=== PATIENT | female | born 1985 | race Caucasian/White ===

== ENCOUNTER → 2016-08-28 | Outpatient (CLI) | payer OTHER ==
[~2016-08-28] MED LIST: SULF1TAB23 PO
[2016-08-28 14:49] LABS: AUTOMATED NEUTROPHIL # 2.4 TH/MM3 (1.8-7.7); BASOPHIL # 0.1 TH/MM3 (0-0.2); EOSINOPHIL # 0.1 TH/MM3 (0-0.4); EOSINOPHIL % 2.1 % (0.0-4.0); HEMATOCRIT 40.2 % (35.0-46.0); HEMO FLAGS DIFF FINAL; LYMPH % 41.6 % (9.0-44.0); LYMPHOCYTE # 2.2 TH/MM3 (1.0-4.8); MEAN CELL VOLUME 91.3 FL (80.0-100.0); MEAN CORPUSCULAR HEMOGLOBIN 30.4 PG (27.0-34.0); MEAN CORPUSCULAR HGB CONC 33.3 % (32.0-36.0); MONO % 7.7 % (0.0-8.0); NEUT % 47.6 % (16.0-70.0); PLATELET COUNT 233 TH/MM3 (150-450); RED CELL DISTRIBUTION WIDTH 11.8 % (11.6-17.2); WHITE BLOOD COUNT 5.2 TH/MM3 (4.0-11.0)
== END ==
LOC: PHPRE 12:11
PROVIDERS: ATTEND Orthopaedic Surgery
DX: Z01.812 Encounter for preprocedural laboratory examination (principal)
CPT/HCPCS: 85025

== ENCOUNTER → 2016-09-05 | Day surgery (SDC) | payer OTHER ==
[~2016-09-05] VITALS: Ht 160 cm; Wt 87.0 kg
[~2016-09-05] MED LIST changes: +*Lactated Ringer's INJ 1,000 ML ONE; +*MEPERIDINE 25 MG INJ VIAL PERIprocedural Use ONLY ONE; +ACETAMINOPHEN/HYDROcodone 325 MG/5 MG TAB ONE; +BUPIVACAINE/EPINEPHRINE 0.5% PF 30 ML VIAL ONE; +FAMOTIDINE 20 MG/2 ML VIAL ONE; +KETOROLAC TROMETHAMINE 30 MG/ML (IVP) VIAL ONE; +LACTATED RINGER'S 1000 ML INJ 1,000 ML ONE; +MIDAZOLAM HCL 2 MG/2 ML VIAL ONE; +MORPHINE SULFATE 4 MG/ML INJ ONE; +PROPOFOL 200 MG/20 ML AMP IV ONE; +TRIAMCINOLONE ACETONIDE 40 MG/ML VIAL ONE
[2016-09-05 06:47] VITALS: BP 106/69; PULSE 65; RESP 14; TEMP 98.1; O2SAT 97
[2016-09-05 09:05] VITALS: PULSE 70
[2016-09-05 10:00] VITALS: PULSE 62; TEMP 97.8
[2016-09-05 11:25] VITALS: BP 105/68; PULSE 89; RESP 14; O2SAT 98
--- NOTE | 2016-09-05 14:29 | MP ---
cc: SENTHIL CROSS M.D. DATE OF SURGERY: 09/05/2016. 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 OPERATIVE PROCEDURE PERFORMED: Arthroscopic lateral release with chondroplasty of the patella and partial synovectomy. SURGEON: Senthil Cross MD. DESCRIPTION OF THE PROCEDURE IN DETAIL: The patient was placed on the operating table in the supine position. Adequate general anesthesia was administered by the anesthesiologist. The patient's right knee was prepped and draped in the usual sterile fashion. A time-out was called and the patient's name, procedure, location, et cetera, were fully confirmed. The Esmarch bandage was used to exsanguinate the lower extremity and a pneumatic tourniquet was inflated at the level of the mid thigh to 300. An anterolateral portal was used for introduction of the double cannula system and the joint was distended with lactated Ringer's solution. A systematic and complete examination of the knee joint revealed medial and lateral compartments unremarkable as well as intact anterior and posterior cruciate ligaments. The patella did appear to be gliding laterally and there appeared to be a medial facet type osteochondral lesion not all the way down to bone. The surrounding area was with hypertrophic synovial tissue. The spinal needle was placed through the anteromedial surface and located and this was followed by insertion of the scope which was switched from the lateral side. The spinal needle was placed in the suprapatellar area lateral to the lateral border of the patella and superior enough to begin location for the lateral release. The lateral release was done through the anterolateral portal and directed distally and longitudinally under direct visualization utilizing the scope. An ArthroWand was used to assist in that as well as completion with a shaver with synovial resector. This did appear to improve the lateral subluxation of the patellofemoral joint. We then placed the shaver along the undersurface of the patella and a chondroplasty was performed along the medial facet where there was pathology as noted above. After thorough irrigation, all instruments were removed and the two stab wounds were closed with 3-0 nylon. Xeroform gauze was applied over the wound prior to which we did inject through the lateral portal 10 mL of 0.5% Marcaine with epinephrine. Xeroform gauze was applied and the bulky dressing applied over this. The tourniquet was deflated after 36 minutes. Estimated blood loss was nil. Sponge count, needle counts and instrument counts were reported correct x2. The patient was transferred to the recovery room in satisfactory condition. MD LASHAY Dotson/FRANCISCA /8:54 AM /2:20 PM
== END | disposition home or self-care (01) ==
LOC: PHSDC 06:19
PROVIDERS: ATTEND Orthopaedic Surgery
DX: M22.41 Chondromalacia patellae, right knee (principal); X58.XXXA Exposure to other specified factors, initial encounter; Y93.89 Activity, other specified; Y92.238 Other place in hospital as the place of occurrence of the external cause; Y99.0 Civilian activity done for income or pay
CPT/HCPCS: 01400; 29873; J1885; J2175; J2250; J2270; J3010; J7120; J3301